=== PATIENT | female | born 1980 | race Caucasian/White ===

== ENCOUNTER 2021-07-20 18:57 | Emergency (ER) | payer MEDICAID ==
[~2021-07-20] VITALS: Ht 160 cm; Wt 111.4 kg
[2021-07-20] MEDS ORDERED: DEXT236S PO (19:06)
[2021-07-20 20:36] LABS: COVID AG,FIA SOURCE NASOPHARYNGEAL
[2021-07-20] MEDS ORDERED: BENZONATATE 100 MG CAPSULE PO ONE (20:45)
[2021-07-20] MEDS ORDERED: BENZ-70 PO (21:04)
[2021-07-20 21:06] LABS: INFLUENZA TYPE A NEGATIVE FOR TYPE A (NEGATIVE); INFLUENZA TYPE B NEGATIVE FOR TYPE B (NEGATIVE)
[2021-07-20 21:22] VITALS: BP 136/100
== END 2021-07-20 21:56 | disposition home or self-care (01) ==
LOC: EMS 19:00
DX: R05.9 Cough, unspecified (principal); Z20.822 Contact with and (suspected) exposure to COVID-19
CPT/HCPCS: 71045; 87804; 99284

== ENCOUNTER 2022-12-13 11:36 | Emergency (ER) | payer MEDICAID ==
[~2022-12-13] VITALS: Ht 162.6 cm; Wt 110.5 kg
[~2022-12-13 11:36] MED LIST: BENZ-227 PO; DEXT236S PO
[2022-12-13 11:56] LABS: GLUCOMETER DEV NAME(LOC) ERT.5
[2022-12-13 12:06] LABS: BASOPHILS % (AUTO) 0.2 % (0.0-2.0); EOSINOPHILS % (AUTO) 0.7 % (1.0-6.0); HEMATOCRIT 38.9 % (36-46); HEMOGLOBIN 13.1 g/dL (12.0-16.0); LYMPHOCYTES % (AUTO) 17.6 % (22.0-44.0); MEAN CORPUSCULAR HGB CONC 33.8 G/dL (31.0-37.0); MEAN CORPUSCULAR VOLUME 86 fL (80-100); MONOCYTES # (AUTO) 0.7 K/uL (0.1-1.0); MONOCYTES % (AUTO) 6.3 % (2.0-9.0); NEUTROPHILS # (AUTO) 8.3 K/uL (1.8-7.7); NEUTROPHILS % (AUTO) 75.2 % (40.0-70.0); PLATELET COUNT (AUTO) 316 K/uL (150-450); RED BLOOD CELL COUNT(AUTO) 4.52 MIL/uL (4.00-5.20); RED CELL DISTRIBUTION WIDTH 13.1 % (11.5-14.5)
[2022-12-13 12:15] LABS: ANION GAP 13 mmol/L (8-16); CALCIUM, TOTAL 9.1 mg/dL (8.8-10.5); CARBON DIOXIDE 22 mmol/L (22-29); CHLORIDE 104 mmol/L (98-107); GLOMERULAR FILTR. RATE CALC > 60 mL/min (>60); GLUCOSE,RANDOM 110 mg/dL (70-110); POTASSIUM 3.4 mmol/L (3.5-5.1); SODIUM SERUM 139 mmol/L (136-145)
[2022-12-13 12:22] LABS: ALANINE AMINOTRANSFERASE 17 U/L (12-78); ALBUMIN 3.7 g/dL (3.4-5.0); ALKALINE PHOSPHATASE 58 U/L (46-116); ASPARTATE AMINOTRANSFERASE 16 U/L (15-37); BILIRUBIN,TOTAL 0.8 mg/dL (0.1-1.0); LIPASE 28 U/L (16-77); TOTAL PROTEIN, SERUM 7.7 g/dL (6.4-8.2)
[2022-12-13] MEDS ORDERED: ACETAMINOPHEN 500 MG TABLET PO ONE (12:30)
[2022-12-13] MEDS ORDERED: MAG HYDROX/AL HYDROX/SIMETH ES 30 ML SUSPENSION UDCUP PO ONE (12:30)
[2022-12-13] MEDS ORDERED: ONDANSETRON HCL 4 MG/2 ML VIAL IVP ONE (12:30)
[2022-12-13] MEDS ORDERED: ACETAMINOPHEN/CODEINE 300-30 MG TABLET PO ONE (13:45)
[2022-12-13] MEDS ORDERED: MAG30ORA11 PO (14:26)
[2022-12-13] MEDS ORDERED: OMEP20 PO (14:26)
[2022-12-13] MEDS ORDERED: ACET-2080 PO (14:26)
[2022-12-13 14:56] VITALS: BP 120/68; PULSE 90; RESP 16; TEMP 98.8
== END 2022-12-13 14:59 | disposition home or self-care (01) ==
LOC: EMS 11:38
DX: K29.70 Gastritis, unspecified, without bleeding (principal); R10.13 Epigastric pain; R53.1 Weakness; Z98.51 Tubal ligation status
CPT/HCPCS: 99291; 96374; 70450; 71045; 80053; 82962; 83690; 84484; 84703; 85025; 93005; 82948; J2405